=== PATIENT | male | born 1975 | race Caucasian/White ===

== ENCOUNTER → 2018-05-27 | Outpatient (CLI) | payer BC | LOC: RAD 07:56 | PROVIDERS: ATTEND Pediatrics | DX: R10.13 Epigastric pain (principal); R14.0 Abdominal distension (gaseous); Z53.8 Procedure and treatment not carried out for other reasons ==

== ENCOUNTER → 2018-05-31 | Outpatient (CLI) | payer BC ==
--- NOTE | 2018-05-31 09:02 | Diagnostic Imaging Report ---
PROCEDURE: US abdomen complete. TECHNIQUE: Multiple real-time grayscale images were obtained over the abdomen in various projections. INDICATION: Epigastric pain. FINDINGS: Liver measures up to 21.5 cm. There is increased echogenicity of the liver compatible with fatty infiltration. There is no cholelithiasis, gallbladder wall thickening or pericholecystic fluid. There may be some mild sludge. There is no biliary duct dilatation. Common bile that measures less than 4 mm. The visualized portions of pancreas are unremarkable. Aorta is not well-seen due to bowel gas. Both kidneys normal in appearance. There is no ascites. IMPRESSION: Gallbladder sludge, however, no cholelithiasis. Fatty infiltration of the liver. Dictated by: Dictated on workstation # [id number]
== END ==
LOC: RAD FS 08:02
PROVIDERS: ATTEND Pediatrics
DX: K83.8 Other specified diseases of biliary tract (principal); R10.13 Epigastric pain
CPT/HCPCS: 76700

== ENCOUNTER → 2019-02-23 | Outpatient (CLI) | payer BC ==
--- NOTE | 2019-02-23 11:40 | Diagnostic Imaging Report ---
INDICATION: Left elbow pain. History of previous injury. COMPARISON: None. FINDINGS: Four radiographic views of the left elbow were obtained. There is chronic appearing deformity of the radial head. A large extraosseous calcification is also noted projecting over the anterior margins of the joint space. It measures approximately 1.1 x 1.7 cm and is best visualized on the lateral view. There is also chronic appearing deformity of the lateral humeral condyle. No acute fracture or dislocation of the left elbow is identified. Joint spaces are otherwise maintained. There is no large joint effusion. IMPRESSION: 1. Chronic appearing deformities of the radial head and lateral humeral condyles, which may relate to previous injury. 2. Findings consistent with large loose body within the anterior joint space of the left elbow. This too may relate to previous injury. 3. No evidence of acute fracture or dislocation of the left elbow. Dictated by: Dictated on workstation # [id number]
== END ==
LOC: RAD FS 11:19
PROVIDERS: ATTEND Nurse Practitioner
DX: M25.522 Pain in left elbow (principal); Z87.828 Personal history of other (healed) physical injury and trauma
CPT/HCPCS: 73080